=== PATIENT | male | born 1970 | race Caucasian/White ===

== ENCOUNTER 2021-03-15 11:24 | Emergency (ER) | payer MEDICARE, MEDICAID ==
[~2021-03-15] VITALS: Ht 162 cm; Wt 59.0 kg
[~2021-03-15 11:24] MED LIST: ACET-2650 PO; BUDE10.2 IH; CARB1DRO OU; CEFT1FRO2 IV; GABA-486 PO; GABA300C PO; IPRA3AMP31 INH; MELO10CA3 PO; MELO15TA14 PO; METH125V2 IVP; METO50TA15 PO; METO75TA PO; OMEP20CA18 PO; SIMV10TA26 PO
[2021-03-15] MEDS ORDERED: CEFU250T80 PO (12:49)
[2021-03-15] MEDS ORDERED: PRD20T PO (12:49)
--- NOTE | 2021-03-15 12:49 | ED Cough/URI ---
General Chief Complaint: Respiratory Problems Stated Complaint: COUGH,CONGESTION Nursing Triage Note: PT PRESENTS TO ED VIA POV FROM HOME WITH COMPLAINTS OF COUGH/CONGESTION SINCE WEDNESDAY. REPORTS DENIES FEVER OR SORE THROAT. Source: patient Exam Limitations: no limitations (FERNANDA THOMAS APRN) History of Present Illness Date Seen by Provider: Mar 15, 2021 Time Seen by Provider: 12:46 Initial Comments To ER with c/o cough nasal congestion x48 hours. No sore throat or fever. Timing/Duration: just prior to arrival Severity/Quality: moderate Prior Episodes/Possible Cause: no prior episodes Associated Symptoms: cough (FERNANDA THOMAS APRN) Allergies and Home Medications Allergies Coded Allergies: No Known Drug Allergies (Unverified , 09/10/20) Patient Home Medication List Home Medication List Reviewed: Yes (FERNANDA THOMAS APRN) Acetaminophen (Tylenol Arthritis) 650 Mg Tablet.er, 1,300 MG PO BID, (Reported) Entered as Reported by: ÓSCAR URIARTE on 09/11/20 0905 Budesonide/Formoterol Fumarate (Symbicort 160-4.5 Mcg Inhaler) 10.2 Gm Hfa.aer.ad, 2 PUFF IH BID, (Reported) Entered as Reported by: ÓSCAR URIARTE on 09/11/20 0905 Carboxymethylcellulose Sodium (Refresh Plus) 1 Each Droperette, 0 EACH OU PRN PRN for DRY EYES Prescribed by: JENN MCDERMOTT on 09/13/20 163 Ceftriaxone Na/Dextrose,Iso (Ceftriaxone 1 gm Piggyback) 1 Gm/50 Ml Froz.piggy, 1 GM IV DAILY Prescribed by: JENN MCDERMOTT on 09/13/20 163 Cefuroxime Axetil (Cefuroxime) 250 Mg Tablet, 250 MG PO BID Prescribed by: FERNANDA THOMAS on 03/15/21 1249 Gabapentin (Neurontin) 300 Mg Capsule, 300 MG PO BID, (Reported) Entered as Reported by: ÓSCAR URIARTE on 09/11/20 0905 Ipratropium/Albuterol Sulfate (Iprat-Albut 0.5-3(2.5) mg/3 ml) 3 Ml Ampul.neb, 3 ML INH RTQ4HR Prescribed by: JENN MCDERMOTT on 09/13/20 163 Meloxicam (Mobic) 15 Mg Tablet, 15 MG PO DAILY, (Reported) Entered as Reported by: ÓSCAR URIARTE on 09/11/20 09 Methylprednisolone Sod Succ/Pf (Solu-Medrol 125 mg Vial) 125 Mg/2 Ml Vial, 40 MG IVP Q8H Prescribed by: JENN MCDERMOTT on 09/13/20 1636 Metoprolol Tartrate (Metoprolol Tartrate) 50 Mg Tablet, 50 MG PO DAILY, (Reported) Entered as Reported by: ÓSCAR URIARTE on 09/11/20904 Omeprazole (Omeprazole) 20 Mg Capsule.dr, 20 MG PO DAILY, (Reported) Entered as Reported by: VLADISLAV MYLES on 09/10/201926 Prednisone (Prednisone) 20 Mg Tab, 40 MG PO DAILY Prescribed by: FERNANDA THOMAS on 03/15/21 124 Simvastatin (Simvastatin) 10 Mg Tablet, 10 MG PO HS, (Reported) Entered as Reported by: VLADISLAV MYLES on 09/10/201926 Review of Systems Review of Systems Constitutional: see HPI EENTM: see HPI, nose congestion Respiratory: see HPI, cough Cardiovascular: no symptoms reported Genitourinary: no symptoms reported Musculoskeletal: no symptoms reported Skin: no symptoms reported Psychiatric/Neurological: No Symptoms Reported Hematologic/Lymphatic: No Symptoms Reported Immunological/Allergic: no symptoms reported (FERNANDA THOMAS APRN) Past Iwbyisy-Cbjvyh-Nxrkyo Hx Patient Social History Tobacco Use?: No Substance use?: No Alcohol Use?: No Pt feels they are or have been: No (FERNANDA THOMAS APRN) Immunizations Up To Date First/Initial COVID19 Vaccinat: 08/23/20 Second COVID19 Vaccination [place]: 08/23/20 COVID19 Vaccine 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 Surgeries: Yes Orthopedic Respiratory: No Cardiac: Yes Hypertension Neurological: No Genitourinary: No Gastrointestinal: No Musculoskeletal: Yes Arthritis, Rheumatoid Arthritis Endocrine: No HEENT: No Cancer: No Psychosocial: No Integumentary: No (FERNANDA THOMAS APRN) Family Medical History [place] (FERNANDA THOMAS APRN) Physical Exam Vital Signs - First Documented 03/15/21 11:47 Temp 36.9 Pulse 82 Resp 20 B/P (MAP) 137/80 (99) Pulse Ox 95 (TARAS RACHEL MD) Capillary Refill : Less Than 3 Seconds (FERNANDA THOMAS APRN) Height: '" Weight: lbs. oz. kg; 22.00 BMI Method: General Appearance: WD/WN, no apparent distress Eyes: Bilateral Eye Normal Inspection, Bilateral Eye PERRL, Bilateral Eye EOMI Neck: non-tender, full range of motion Respiratory: lungs clear, normal breath sounds, no respiratory distress, no accessory muscle use Cardiovascular: regular rate, rhythm, no murmur Gastrointestinal: normal bowel sounds, non tender, soft Extremities: normal range of motion, non-tender Neurologic/Psychiatric: alert, normal mood/affect, oriented x 3 Skin: normal color, warm/dry (FERNANDA THOMAS APRN) Progress/Results/Core Measures Suspected Sepsis SIRS Temperature: Pulse: 82 Respiratory Rate: 20 Blood Pressure 137 /80 Mean: 99 (FERNANDA THOMAS APRN) Results/Orders Lab Results Laboratory Tests Test 03/15/21 11:43 Range/Units Influenza Type A (RT-PCR) Not Detected Not Detecte Influenza Type B (RT-PCR) Not Detected Not Detecte SARS-CoV-2 RNA (RT-PCR) Not Detected Not Detecte (TARAS RAHCEL MD) Vital Signs/I&O 03/15/21 03/15/21 11:47 13:42 Temp 36.9 Pulse 82 76 Resp 20 18 B/P (MAP) 137/80 (99) 119/73 Pulse Ox 95 98 (TARAS RACHEL MD) Vital Signs/I&O Capillary Refill : Less Than 3 Seconds (FERNANDA THOMAS APRN) Blood Pressure Mean: 99 Departure Impression Primary Impression: Bronchitis 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 Decision time for Depature: 12:48 (FERNANDA THOMAS APRN) Referrals: [facility] (PCP/Family) Primary Care Physician Patient Instructions: Bronchitis, Adult ED Add. Discharge Instructions: 1. Return to ER for any concerns 2. Medication as directed 3. Follow-up with your doctor next week All discharge instructions reviewed with patient and/or family. Voiced understanding. Scripts Prednisone (Prednisone) 20 Mg Tab 40 MG PO DAILY, #6 TAB Prov: FERNANDA THOMAS COMPUTING CONSULTANT 03/15/21 Cefuroxime Axetil (Cefuroxime) 250 Mg Tablet 250 MG PO BID, #10 TAB Prov: FERNANDA THOMAS APRN 03/15/21 ATTENDING PHYSICIAN NOTE: I was physically present as attending physician in the emergency department during the care of this patient, but I was not directly involved in the decision making or delivery of care for this patient. (TARAS RACHEL MD) FERNANDA THOMAS APRN Mar 15, 2021 12:49 TARAS RACHEL MD Mar 15, 2021 18:55
--- NOTE | 2021-03-15 13:25 | Diagnostic Imaging Report ---
CHEST 1 VIEW, AP/PA ONLY INDICATION: Cough COMPARISON: 09/14/2020 FINDINGS: Stable widening of the upper mediastinum with prior descending aorta stent graft repair. No enlargement of cardiac silhouette. Visualized lungs are clear. Posterior lower lobes are poorly evaluated by portable radiography. No pleural effusion or pneumothorax. IMPRESSION: 1. No acute cardiopulmonary process. 2. Stable mediastinal silhouette with prior EVAR. Dictated by: Dictated on workstation # [id number]
[2021-03-15 13:42] VITALS: BP 119/73
== END 2021-03-15 13:41 | disposition home or self-care (01) ==
LOC: EDUNIT# 11:24 → ER 11:25
DX: J40 Bronchitis, not specified as acute or chronic (principal); G60.0 Hereditary motor and sensory neuropathy; I10 Essential (primary) hypertension; Z20.822 Contact with and (suspected) exposure to COVID-19
CPT/HCPCS: 71045; 87636

== ENCOUNTER → 2021-04-10 | Outpatient (CLI) | payer MEDICARE, MEDICAID ==
[~2021-04-10] MED LIST changes: +CEFU250T80 PO; +PRD20T PO
--- NOTE | 2021-04-10 09:45 | Diagnostic Imaging Report ---
PROCEDURE: CT chest without contrast. TECHNIQUE: Multiple contiguous axial images were obtained through the chest without the use of intravenous contrast. Auto Exposure Controls were utilized during the CT exam to meet ALARA standards for radiation dose reduction. INDICATION: Cough. COMPARISON: 09/10/2020 FINDINGS: Pleural effusions have resolved. There is, however continued pleural nodularity most pronounced posteriorly in the upper left hemithorax as well as in the right apex. There is minimal residual infiltrate and/or scarring within the medial segment of the right middle lobe. There is no significant pericardial fluid. No pathologically enlarged adenopathy is identified. Thoracic aortic stent is in stable position. There is continued left convexity curvature of thoracic spine with left rib deformities. IMPRESSION: No evidence of acute infiltrate and the pleural effusion seen on previous study have resolved. No new abnormality is identified. Nodularity along the posterior pleura left greater than right could represent areas of scarring although other considerations include neurofibromas and clinical correlation would be of use. Incidental note is made of cholelithiasis similar to the previous study as well. Dictated by: Dictated on workstation # [id number]
== END ==
LOC: RAD 09:00
PROVIDERS: ATTEND Pediatrics
DX: J94.8 Other specified pleural conditions (principal); K80.20 Calculus of gallbladder without cholecystitis without obstruction
CPT/HCPCS: 71250

== ENCOUNTER → 2021-04-21 | Outpatient (CLI) | payer MEDICARE, MEDICAID ==
[~2021-04-21] MED LIST changes: +RT-ALBUTEROL SULF 2.5 MG/3 ML PRE-MIX VIAL INH ONE
== END ==
LOC: RT 09:15
PROVIDERS: ATTEND Nurse Practitioner Family
DX: J98.4 Other disorders of lung (principal); J45.40 Moderate persistent asthma, uncomplicated
CPT/HCPCS: 94060; 94726; 94729

== ENCOUNTER → 2021-08-06 | Outpatient (CLI) | payer MEDICARE, MEDICAID ==
[~2021-08-06] MED LIST changes: -RT-ALBUTEROL SULF 2.5 MG/3 ML PRE-MIX VIAL INH ONE
== END ==
LOC: CARD 13:00
PROVIDERS: ATTEND Pediatrics
DX: I08.2 Rheumatic disorders of both aortic and tricuspid valves (principal); I72.9 Aneurysm of unspecified site
CPT/HCPCS: 93306